=== PATIENT | female | born 1985 | race Caucasian/White ===

== ENCOUNTER 2024-05-16 22:30 | Emergency (ER) | payer OTHER ==
[~2024-05-16] VITALS: Ht 162.6 cm; Wt 62.1 kg
[2024-05-16 22:46] VITALS: TEMP 98
[2024-05-16] MEDS ORDERED: PRED50TA PO (22:59)
[2024-05-16] MEDS ORDERED: CETI-194 PO (22:59)
[2024-05-16] MEDS: diphenhydrAMINE HCL 50 MG CAPSULE PO ONE (23:00)
[2024-05-16] MEDS: FAMOTIDINE (20 MG) 20 MG TABLET PO ONE (23:00)
[2024-05-16] MEDS: predniSONE 10 MG TABLET PO ONE (23:00)
[2024-05-16] MEDS ORDERED: predniSONE 20 MG TABLET ONE (23:06)
[2024-05-16] MEDS ORDERED: diphenhydrAMINE HCL 50 MG CAPSULE ONE (23:07)
[2024-05-16] MEDS ORDERED: FAMOTIDINE (20 MG) 20 MG TABLET ONE (23:07)
[2024-05-16 23:32] VITALS: BP 120/75; O2SAT 99
== END 2024-05-16 23:31 | disposition home or self-care (01) ==
LOC: ER 22:36
DX: L50.9 Urticaria, unspecified (principal)
CPT/HCPCS: 99284; Q0163; J7512 ×2

== ENCOUNTER 2024-06-08 11:44 | Emergency (ER) | payer OTHER ==
[~2024-06-08] VITALS: Ht 162.6 cm; Wt 54.4 kg
[~2024-06-08 11:44] MED LIST: CETI-194 PO; PRED50TA PO
[2024-06-08 12:31] LABS: BASOPHILS % (AUTO) 0.4 % (0.0-2.0); EOSINOPHILS % (AUTO) 0.3 % (0.0-6.0); HEMATOCRIT 39 % (33-45); HEMOGLOBIN 13.2 g/dL (11.5-14.8); LYMPHOCYTES # (AUTO) 2.3 K/uL (0.8-4.8); LYMPHOCYTES % (AUTO) 31.8 % (20.0-44.0); MEAN CORPUSCULAR HEMOGLOBIN 30 PG (26.0-33.0); MEAN CORPUSCULAR HGB CONC 34 g/dl (31.0-36.0); MEAN CORPUSCULAR VOLUME 88 fL (82-100); MONOCYTES # (AUTO) 0.6 K/uL (0.1-1.30); MONOCYTES % (AUTO) 8.8 % (2.0-12.0); NEUTROPHILS # (AUTO) 4.2 K/uL (1.8-8.9); NEUTROPHILS % (AUTO) 58.7 % (43.0-81.0); PLATELET COUNT (AUTO) 246 K/uL (150-450); RED BLOOD CELL COUNT(AUTO) 4.42 MIL/uL (4.0-5.2); RED CELL DISTRIBUTION WIDTH 12.8 % (11.5-15.0); WHITE BLOOD COUNT (AUTO) 7.2 K/uL (4.3-11.0)
[2024-06-08] MEDS ORDERED: ONDANSETRON HCL/PF 4 MG/2 ML VIAL ONE (12:31)
[2024-06-08] MEDS ORDERED: MORPHINE SULFATE INJ 4 MG/ML DISP.SYRIN ONE (12:32)
[2024-06-08 12:44] LABS: CALCIUM, SERUM 9.5 mg/dL (8.5-10.1); CREATININE 0.8 mg/dL (0.6-1.3); POTASSIUM 3.9 mmol/L (3.5-5.1)
[2024-06-08] MEDS: IV NS 0.9% 1,000 ML BAG IV ONE (12:46)
[2024-06-08] MEDS: MORPHINE SULFATE INJ 2 MG/ML DISP.SYRIN IV ONE (12:47)
[2024-06-08] MEDS: ONDANSETRON HCL/PF 4 MG/2 ML VIAL IVP ONE (12:48)
[2024-06-08 12:50] LABS: ALBUMIN 4.6 g/dL (3.4-5.0); BILIRUBIN,DIRECT 0.3 mg/dL (0.0-0.2); BILIRUBIN,TOTAL 1.3 mg/dL (0.2-1.0); TOTAL PROTEIN, SERUM 7.6 g/dL (6.4-8.2)
[2024-06-08 13:25] LABS: APPEARANCE,URINE CLEAR (CLEAR); BILIRUBIN,URINE NEGATIVE (NEGATIVE); BLOOD, URINE NEGATIVE Ery/uL (NEGATIVE); COLOR,URINE OTHER (YELLOW); KETONES,URINE TRACE mg/dL (NEGATIVE); LEUKOCYTE ESTERASE ,URINE NEGATIVE (NEGATIVE); NITRITE, URINE NEGATIVE (NEGATIVE); PROTEIN,URINE NEGATIVE (NEGATIVE); UGLUCOSE NEGATIVE (NEGATIVE); UROBILINOGEN,URINE 0.2 EU/dL (0.2)
[2024-06-08 13:26] LABS: PREGNANCY TEST URINE QUAL NEGATIVE (NEGATIVE)
[2024-06-08 13:34] LABS: ADD URINE CULTURE NO; BACTERIA,URINE Rare /HPF (None Seen); RBC,URINE 0-2 /HPF (0-2); WBC,URINE 0-2 /HPF (0-3)
[2024-06-08 15:47] VITALS: BP 120/72; TEMP 98.7; O2SAT 100
== END 2024-06-08 15:48 | disposition home or self-care (01) ==
LOC: ER 11:48
DX: R10.9 Unspecified abdominal pain (principal); K21.9 Gastro-esophageal reflux disease without esophagitis; R10.33 Periumbilical pain; Z79.52 Long term (current) use of systemic steroids
CPT/HCPCS: 99285; 74176; 96374; 76705; 96361; 96375; 85025; 80048; 83690; 80076; 84703; 81001; 36415; J2270; J2405; J7030